=== PATIENT | female | born 1940 | race American Indian/Alaskan Native ===

== ENCOUNTER 2018-03-26 07:45 | Outpatient (CLI) | payer OTHER ==
[~2018-03-26 07:45] MED LIST: SYNTHROID125 MCG; SYNTHROID75 MCG PO
== END 2018-03-26 15:00 | disposition home or self-care (01) ==
LOC: TOM 07:45
DX: Z12.31 Encounter for screening mammogram for malignant neoplasm of breast (principal); Z87.898 Personal history of other specified conditions; N60.11 Diffuse cystic mastopathy of right breast; R10.84 Generalized abdominal pain; K57.92 Diverticulitis of intestine, part unspecified, without perforation or abscess without bleeding; R63.0 Anorexia
CPT/HCPCS: 74177; 76641; 77067; Q9965

== ENCOUNTER → 2018-11-10 | Outpatient (CLI) | payer OTHER | END | disposition home or self-care (01) | LOC: SONOGRAMA 07:40 | DX: R10.84 Generalized abdominal pain (principal); K57.90 Diverticulosis of intestine, part unspecified, without perforation or abscess without bleeding; K25.9 Gastric ulcer, unspecified as acute or chronic, without hemorrhage or perforation ==

== ENCOUNTER → 2018-11-16 | Outpatient (CLI) | payer OTHER | END | disposition home or self-care (01) | LOC: NUCLEAR 12:57 | DX: M81.0 Age-related osteoporosis without current pathological fracture (principal) ==

== ENCOUNTER → 2018-11-19 | Outpatient (CLI) | payer OTHER | END | disposition home or self-care (01) | LOC: RAD 501 10:24 | DX: R05 Cough (principal) ==

== ENCOUNTER 2019-02-02 10:00 | Outpatient (CLI) | payer OTHER | END 2019-02-02 10:03 | disposition home or self-care (01) | LOC: SONOGRAMA 10:00 → MAMO-SONO 02-08 13:15 | DX: E04.8 Other specified nontoxic goiter (principal) ==

== ENCOUNTER 2020-04-11 09:27 | Outpatient (CLI) | payer OTHER ==
[~2020-04-11 09:27] MED LIST changes: -MONTELUKAST SODI4 M1; -TRELEGY ELLIPT1 EACH; -XOPENEX0.63 MG/3
== END 2020-04-11 09:32 | disposition home or self-care (01) ==
LOC: LAB 09:27 → EDBD 09:27 → LAB 09:32
DX: E11.9 Type 2 diabetes mellitus without complications (principal); E03.8 Other specified hypothyroidism; E78.49 Other hyperlipidemia; I10 Essential (primary) hypertension

== ENCOUNTER → 2020-04-11 | Outpatient (CLI) | payer OTHER ==
[~2020-04-11] MED LIST changes: +MONTELUKAST SODI4 M1; +TRELEGY ELLIPT1 EACH; +XOPENEX0.63 MG/3
== END | disposition home or self-care (01) ==
LOC: EDBD 09:27 → TOM 09:27
PROVIDERS: ATTEND Internal Medicine Pulmonary Disease
DX: J32.4 Chronic pansinusitis (principal)

== ENCOUNTER 2020-04-13 08:36 | Inpatient (IN) | payer OTHER ==
[~2020-04-13] VITALS: Ht 152.4 cm; Wt 61.2 kg
[2020-04-13] MEDS ORDERED: XOPENEX0.63 MG/3 (09:27)
[2020-04-13] MEDS ORDERED: TRELEGY ELLIPT1 EACH (09:28)
[2020-04-13] MEDS ORDERED: MONTELUKAST SODI4 M1 (09:28)
== END 2020-04-21 16:05 | DRG 203 ==
LOC: EDBD 08:36 → ER 08:36 → SEC-K 17:19 → MEDI 17:19 → MEDJ 18:26 → MEDI 18:26
PROVIDERS: ADMIT Internal Medicine; ATTEND Internal Medicine
PROC: 4A033R1 Measurement of Arterial Saturation, Peripheral, Percutaneous Approach (ICD-10-PCS; principal; 2020-04-13)
PROC: 3E0F7GC Introduction of Other Therapeutic Substance into Respiratory Tract, Via Natural or Artificial Opening (ICD-10-PCS; 2020-04-13)
PROC: BB24ZZZ Computerized Tomography (CT Scan) of Bilateral Lungs (ICD-10-PCS; 2020-04-13)
PROC: B246ZZZ Ultrasonography of Right and Left Heart (ICD-10-PCS; 2020-04-14)
DX: J45.901 Unspecified asthma with (acute) exacerbation (principal); J45.902 Unspecified asthma with status asthmaticus; J22 Unspecified acute lower respiratory infection; J20.9 Acute bronchitis, unspecified; J32.2 Chronic ethmoidal sinusitis; I10 Essential (primary) hypertension; E03.8 Other specified hypothyroidism; H70.891 Other mastoiditis and related conditions, right ear; F17.200 Nicotine dependence, unspecified, uncomplicated

== ENCOUNTER 2020-05-02 12:10 | Outpatient (CLI) | payer OTHER ==
[~2020-05-02 12:10] MED LIST changes: +MONTELUKAST SODI4 M1; +TRELEGY ELLIPT1 EACH; +XOPENEX0.63 MG/3
[2020-05-02] MEDS ORDERED: NEILMED SINUS1 EAC1 NASAL (12:39)
[2020-05-02] MEDS ORDERED: SYNTHROID125 MCG PO (12:40)
[2020-05-02] MEDS ORDERED: FLONASE16 GM NASAL (12:41)
== END 2020-05-02 13:00 | disposition home or self-care (01) ==
LOC: OFIC 805 12:10 → EDBD 12:10 → OFIC 805 12:25
PROVIDERS: ATTEND Otolaryngology
DX: J30.89 Other allergic rhinitis (principal); H70.891 Other mastoiditis and related conditions, right ear; H61.21 Impacted cerumen, right ear

== ENCOUNTER → 2020-05-10 | Outpatient (CLI) | payer OTHER ==
[~2020-05-10] MED LIST changes: +FLONASE16 GM NASAL; +NEILMED SINUS1 EAC1 NASAL; +SYNTHROID125 MCG PO
== END | disposition home or self-care (01) ==
LOC: TOM 05-03 13:15 → EDBD 05-03 13:15 → TOM 08:48
PROVIDERS: ATTEND Otolaryngology
DX: Z12.31 Encounter for screening mammogram for malignant neoplasm of breast (principal); E55.9 Vitamin D deficiency, unspecified; R92.1 Mammographic calcification found on diagnostic imaging of breast; N60.11 Diffuse cystic mastopathy of right breast; N60.12 Diffuse cystic mastopathy of left breast; M81.0 Age-related osteoporosis without current pathological fracture; G02 Meningitis in other infectious and parasitic diseases classified elsewhere; H90.0 Conductive hearing loss, bilateral

== ENCOUNTER 2020-05-30 08:45 | Outpatient (CLI) | payer OTHER | END 2020-05-30 14:17 | disposition home or self-care (01) | LOC: OFIC 805 08:45 | PROVIDERS: ATTEND Otolaryngology | DX: H91.8X1 Other specified hearing loss, right ear (principal); H70.891 Other mastoiditis and related conditions, right ear ==

== ENCOUNTER → 2020-06-29 | Outpatient (CLI) | payer OTHER | END | disposition home or self-care (01) | LOC: OFIC 805 09:57 | PROVIDERS: ATTEND Otolaryngology | DX: H70.891 Other mastoiditis and related conditions, right ear (principal); J30.89 Other allergic rhinitis; R14.3 Flatulence ==

== ENCOUNTER 2020-08-10 11:38 | Outpatient (CLI) | payer OTHER | END 2020-08-10 12:30 | disposition home or self-care (01) | LOC: OFIC 805 11:38 | PROVIDERS: ATTEND Otolaryngology | DX: J38.7 Other diseases of larynx (principal); R49.1 Aphonia ==

== ENCOUNTER → 2020-09-28 | Outpatient (CLI) | payer OTHER | END | disposition home or self-care (01) | LOC: OFIC 805 10:37 | PROVIDERS: ATTEND Otolaryngology | DX: R49.0 Dysphonia (principal) ==

== ENCOUNTER 2020-11-29 13:03 | Outpatient (CLI) | payer OTHER ==
[2020-12-01] MEDS ORDERED: VOLTAREN-XR100 MG PO (16:19)
== END 2020-11-29 13:10 | disposition home or self-care (01) ==
LOC: RAD 13:03
PROVIDERS: ATTEND Internal Medicine
DX: M17.12 Unilateral primary osteoarthritis, left knee (principal)

== ENCOUNTER 2020-12-04 10:16 | Outpatient (CLI) | payer OTHER ==
[~2020-12-04 10:16] MED LIST changes: +VOLTAREN-XR100 MG PO
== END 2020-12-04 10:24 | disposition home or self-care (01) ==
LOC: NUCLEAR 10:16
PROVIDERS: ATTEND Internal Medicine
DX: I82.401 Acute embolism and thrombosis of unspecified deep veins of right lower extremity (principal)

== ENCOUNTER 2020-12-27 13:18 | Outpatient (CLI) | payer OTHER | END 2020-12-27 13:26 | disposition home or self-care (01) | LOC: MRI 13:18 | DX: S83.242A Other tear of medial meniscus, current injury, left knee, initial encounter (principal); M23.602 Other spontaneous disruption of unspecified ligament of left knee; M25.462 Effusion, left knee; M17.12 Unilateral primary osteoarthritis, left knee | CPT/HCPCS: 73718 ==

== ENCOUNTER 2021-05-16 11:43 | Outpatient (CLI) | payer OTHER | END 2021-05-16 11:53 | disposition home or self-care (01) | LOC: MAMO-SONO 11:43 | PROVIDERS: ATTEND Obstetrics & Gynecology Gynecology | DX: N60.11 Diffuse cystic mastopathy of right breast (principal); N60.12 Diffuse cystic mastopathy of left breast; M81.0 Age-related osteoporosis without current pathological fracture; E55.9 Vitamin D deficiency, unspecified; R92.1 Mammographic calcification found on diagnostic imaging of breast; N64.59 Other signs and symptoms in breast; Z12.31 Encounter for screening mammogram for malignant neoplasm of breast ==

== ENCOUNTER 2021-05-29 10:17 | Outpatient (CLI) | payer OTHER | END 2021-05-29 10:21 | disposition home or self-care (01) | LOC: NUCLEAR 10:17 | PROVIDERS: ATTEND Internal Medicine | DX: M81.0 Age-related osteoporosis without current pathological fracture (principal); I82.401 Acute embolism and thrombosis of unspecified deep veins of right lower extremity; M89.9 Disorder of bone, unspecified; M85.9 Disorder of bone density and structure, unspecified ==

== ENCOUNTER 2021-10-01 13:22 | Outpatient (CLI) | payer OTHER ==
[~2021-10-01 13:22] MED LIST changes: +DICLOFENAC SODI50 MG PO
== END 2021-10-01 14:00 | disposition home or self-care (01) ==
LOC: RAD 13:22
PROVIDERS: ATTEND Orthopaedic Surgery Orthopaedic Surgery of the Spine
DX: Q67.5 Congenital deformity of spine (principal)

== ENCOUNTER 2021-10-31 09:35 | Outpatient (CLI) | payer OTHER | END 2021-10-31 09:41 | disposition home or self-care (01) | LOC: LAB 09:35 | PROVIDERS: ATTEND Radiology Diagnostic Radiology | DX: N28.89 Other specified disorders of kidney and ureter (principal) ==

== ENCOUNTER 2021-11-02 07:15 | Outpatient (CLI) | payer OTHER | END 2021-11-02 07:18 | disposition home or self-care (01) | LOC: SONOGRAMA 07:15 | PROVIDERS: ATTEND Internal Medicine Gastroenterology | DX: N13.39 Other hydronephrosis (principal); R10.84 Generalized abdominal pain | CPT/HCPCS: 74160; Q9965 ==

== ENCOUNTER 2022-04-04 08:46 | Outpatient (CLI) | payer OTHER | END 2022-04-04 08:48 | disposition home or self-care (01) | LOC: RAD 08:46 → NUCLEAR 13:00 | PROVIDERS: ATTEND Internal Medicine Cardiovascular Disease | DX: I10 Essential (primary) hypertension (principal) ==

== ENCOUNTER → 2022-04-04 10:15 | Outpatient (CLI) | payer OTHER | END | disposition home or self-care (01) | LOC: NUCLEAR 10:15 | PROVIDERS: ATTEND Urology | DX: N13.2 Hydronephrosis with renal and ureteral calculous obstruction (principal) | CPT/HCPCS: 78701; A9539; J1940 ==

== ENCOUNTER 2022-08-12 12:15 | Outpatient (CLI) | payer OTHER ==
[~2022-08-12 12:15] MED LIST changes: +HYMOVIS24 MG/3 ML IU
== END 2022-08-12 12:37 | disposition home or self-care (01) ==
LOC: MAMO-SONO 12:15
PROVIDERS: ATTEND Obstetrics & Gynecology Gynecology
DX: N60.19 Diffuse cystic mastopathy of unspecified breast (principal); N60.12 Diffuse cystic mastopathy of left breast; N60.11 Diffuse cystic mastopathy of right breast

== ENCOUNTER 2022-10-09 11:52 | Outpatient (CLI) | payer OTHER | END 2022-10-09 11:59 | disposition home or self-care (01) | LOC: RAD 11:52 | PROVIDERS: ATTEND Orthopaedic Surgery Adult Reconstructive Orthopaedic Surgery | DX: M17.12 Unilateral primary osteoarthritis, left knee (principal); I11.9 Hypertensive heart disease without heart failure ==

== ENCOUNTER 2022-10-23 12:22 | Outpatient (CLI) | payer OTHER | END 2022-10-23 12:24 | disposition home or self-care (01) | LOC: LAB 12:22 | PROVIDERS: ATTEND Orthopaedic Surgery Adult Reconstructive Orthopaedic Surgery | DX: Z20.818 Contact with and (suspected) exposure to other bacterial communicable diseases (principal) ==

== ENCOUNTER 2023-02-19 12:51 | Outpatient (CLI) | payer OTHER | END 2023-02-19 13:01 | disposition home or self-care (01) | LOC: RAD 12:51 | PROVIDERS: ATTEND Orthopaedic Surgery Adult Reconstructive Orthopaedic Surgery | DX: Z96.652 Presence of left artificial knee joint (principal) ==

== ENCOUNTER 2023-03-04 12:36 | Outpatient (CLI) | payer OTHER | END 2023-03-04 12:40 | disposition home or self-care (01) | LOC: TOM 12:36 | PROVIDERS: ATTEND Internal Medicine Gastroenterology | DX: R10.9 Unspecified abdominal pain (principal) ==

== ENCOUNTER 2023-04-01 09:29 | Emergency (ER) | payer OTHER ==
[~2023-04-01] VITALS: Ht 152.4 cm; Wt 59.4 kg
[2023-04-01] MEDS ORDERED: SYNTHROID50 MCG PO (10:20)
[2023-04-01] MEDS ORDERED: PEPCID AC20 MG (10:22)
[2023-04-01] MEDS ORDERED: ZYLOPRIM100 M1 (10:22)
[2023-04-01] MEDS ORDERED: SULINDAC200 MG (10:23)
[2023-04-01] MEDS ORDERED: FLAGYL I.V500 MG/100 (10:23)
[2023-04-01] MEDS ORDERED: XYZAL5 MG (10:24)
[2023-04-01] MEDS ORDERED: LOPERAMIDE2 M1 (10:24)
[2023-04-01] MEDS ORDERED: DICYCLOMINE HCL20 MG (10:24)
[2023-04-01] MEDS ORDERED: BENZONATATE200 M1 (10:25)
[2023-04-01] MEDS ORDERED: AMOX-CLAV 875-1 EACH (10:26)
[2023-04-01] MEDS ORDERED: ACID REDUCER20 M1 PO (11:38)
[2023-04-01] MEDS ORDERED: PROBIOTIC ACID1 EAC1 PO (12:08)
== END 2023-04-01 12:04 | disposition home or self-care (01) ==
LOC: ER 09:29
DX: R10.13 Epigastric pain (principal); K21.9 Gastro-esophageal reflux disease without esophagitis; K29.70 Gastritis, unspecified, without bleeding

== ENCOUNTER 2023-08-22 09:03 | Outpatient (CLI) | payer OTHER ==
[~2023-08-22 09:03] MED LIST changes: +ACID REDUCER20 M1 PO; +AMOX-CLAV 875-1 EACH; +BENZONATATE200 M1; +DICYCLOMINE HCL20 MG; +FLAGYL I.V500 MG/100; +LOPERAMIDE2 M1; +PEPCID AC20 MG; +PROBIOTIC ACID1 EAC1 PO; +SULINDAC200 MG; +SYNTHROID50 MCG PO; +XYZAL5 MG; +ZYLOPRIM100 M1
== END 2023-08-22 09:21 | disposition home or self-care (01) ==
LOC: MAMO-SONO 09:03
PROVIDERS: ATTEND General Practice
DX: N64.4 Mastodynia (principal); Z12.31 Encounter for screening mammogram for malignant neoplasm of breast

== ENCOUNTER 2023-12-31 09:19 | Outpatient (CLI) | payer OTHER | END 2023-12-31 09:25 | disposition home or self-care (01) | LOC: SONOGRAMA 09:19 | PROVIDERS: ATTEND Internal Medicine Gastroenterology | DX: R10.9 Unspecified abdominal pain (principal) ==

== ENCOUNTER 2023-12-31 11:20 | Outpatient (CLI) | payer OTHER | END 2023-12-31 11:21 | disposition home or self-care (01) | LOC: NUCLEAR 11:20 | PROVIDERS: ATTEND Obstetrics & Gynecology Gynecology | DX: M81.0 Age-related osteoporosis without current pathological fracture (principal) ==

== ENCOUNTER 2024-04-28 12:03 | Outpatient (CLI) | payer OTHER | END 2024-04-28 12:09 | disposition home or self-care (01) | LOC: RAD 12:03 | DX: M13.80 Other specified arthritis, unspecified site (principal) ==

== ENCOUNTER 2024-06-10 11:02 | Outpatient (CLI) | payer OTHER | END 2024-06-10 11:12 | disposition home or self-care (01) | LOC: SONOGRAMA 11:02 | PROVIDERS: ATTEND Internal Medicine Endocrinology, Diabetes & Metabolism | DX: E04.1 Nontoxic single thyroid nodule (principal) ==

== ENCOUNTER 2024-11-23 09:41 | Outpatient (CLI) | payer OTHER | END 2024-11-23 09:42 | disposition home or self-care (01) | LOC: NUCLEAR 09:41 → EDBD 09:41 → NUCLEAR 09:42 | DX: G25.81 Restless legs syndrome (principal); I70.213 Atherosclerosis of native arteries of extremities with intermittent claudication, bilateral legs; D50.8 Other iron deficiency anemias; D51.3 Other dietary vitamin B12 deficiency anemia; E03.8 Other specified hypothyroidism; I67.9 Cerebrovascular disease, unspecified; M81.0 Age-related osteoporosis without current pathological fracture; I87.2 Venous insufficiency (chronic) (peripheral) ==

== ENCOUNTER 2024-11-23 10:57 | Outpatient (CLI) | payer OTHER | END 2024-11-23 11:06 | disposition home or self-care (01) | LOC: EDBD 10:57 → MAMO-SONO 10:57 | PROVIDERS: ATTEND General Practice | DX: J20.9 Acute bronchitis, unspecified (principal); J45.909 Unspecified asthma, uncomplicated; R05.9 Cough, unspecified; N64.4 Mastodynia; Z12.31 Encounter for screening mammogram for malignant neoplasm of breast ==

== ENCOUNTER 2024-11-25 10:34 | Outpatient (CLI) | payer OTHER | END 2024-11-25 10:35 | disposition home or self-care (01) | LOC: NUCLEAR 10:34 | PROVIDERS: ATTEND Internal Medicine Hematology & Oncology | DX: I70.213 Atherosclerosis of native arteries of extremities with intermittent claudication, bilateral legs (principal) ==

== ENCOUNTER 2024-12-14 09:35 | Outpatient (CLI) | payer OTHER | END 2024-12-14 09:39 | disposition home or self-care (01) | LOC: SONOGRAMA 09:35 | PROVIDERS: ATTEND Internal Medicine Gastroenterology | DX: R10.9 Unspecified abdominal pain (principal) ==

== ENCOUNTER 2025-01-20 08:59 | Outpatient (CLI) | payer OTHER | END 2025-01-20 09:08 | disposition home or self-care (01) | LOC: TOM 08:59 | PROVIDERS: ATTEND Internal Medicine Gastroenterology | DX: R10.9 Unspecified abdominal pain (principal); E03.9 Hypothyroidism, unspecified; E78.5 Hyperlipidemia, unspecified | CPT/HCPCS: 74177; Q9965 ==

== ENCOUNTER 2025-04-05 14:17 | Outpatient (CLI) | payer OTHER | END 2025-04-05 14:26 | disposition home or self-care (01) | LOC: TOM 14:17 | PROVIDERS: ATTEND Urology | DX: N20.0 Calculus of kidney (principal) ==